=== PATIENT | female | born 1940 | race Caucasian/White ===

== ENCOUNTER → 2016-08-09 | Day surgery (SDC) | payer MEDICARE ==
[~2016-08-09] MED LIST: ALBU1AER INH; B-COTAB41 PO; BACITRACIN IM FOR SOLN 50,000 UNIT VIAL ONE; BENA25TA8 PO; BUPIVACAINE HCL PF 0.75% 30 ML VIAL ONE; BUPIVACAINE/EPINEPHRINE 0.25% 50 ML VIAL ONE; CLINDAMYCIN PHOS 600 MG/4 ML VIAL ONE; LACTATED RINGER'S 1000 ML INJ 1,000 ML ONE; LEVO75TA3 PO; LIDOCAINE 1.5%/EPINEPHrine 1:200,000 PF SOLN 30 ML AMP ONE; MIDAZOLAM HCL 5 MG/ML VIAL (1 ML) ONE; MONT10 PO; PROPOFOL 200 MG/20 ML AMP IV ONE; SODIUM CHLORIDE 0.9% 20 ML VIAL ONE; SODIUM CHLORIDE 0.9% INJ 10 ML ONE; SODIUM CHLORIDE 0.9% SOLN 100 ML (PAB) BAG IV ONE; SPIRCAP INH; VITA500015 PO; VITA500S3 SL; [UNRECOGNIZED DRUG - CODE] EX; ceFAZolin INJ 1,000 MG VIAL ONE
--- NOTE | 2016-08-09 12:42 | TN ---
cc: AKBAR YOUSIF M.D. DATE OF SURGERY 08/09/2016 PREOPERATIVE DIAGNOSIS 1. Right shoulder rotator cuff tear. 2. 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 POSTOPERATIVE DIAGNOSIS 1. Right shoulder large retracted two tendon rotator cuff tear. 2. Right shoulder acromioclavicular joint degenerative arthritis with subclavicular impingement. PROCEDURE PERFORMED 1. Open right shoulder rotator cuff repair including acromioplasty. 2. Right shoulder open partial distal clavicle excision and (10 mm). SURGEON Akbar Yousif MD ANESTHESIA General via laryngeal mask augmented by interscalene block and local infiltration BLOOD LOSS Minimal FLUIDS REPLACEMENT 600 cc of crystalloid SPECIMEN No specimens were sent. COUNTS All counts were correct. COMPLICATIONS There were no intraoperative complications. IMPLANTS UTILIZED Two Arthrex 5.5 mm Bio-Corkscrews and two Arthrex 4.5 mm Bio-PushLocks. Please note that each of the Bio-Corkscrews had four #2 FiberWire sutures on them. COMPLICATIONS There were no intraoperative complications. COUNTS All counts were correct. INDICATIONS FOR PROCEDURE Mrs. 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 She has had progressive worsening of her active and passive range of motion and as a result of her weakness and pain, she is being taken to the operating room for rotator cuff repair. She was aware of the risks, benefits, potential complications and limitations of the procedure including a significant postop recovery program and she had been cleared by Dr. Hogan from the medical standpoint. DESCRIPTION OF PROCEDURE After the patient verbally identified in the holding area, she correctly marked her right shoulder, I had initialed it as well. She then was given an interscalene block by Dr. Lara under ultrasound guidance in the preoperative holding area. At this time, she was given one gram of intravenous Ancef as prophylactic antibiotic and then she was taken to the operating suite where she was placed under general laryngeal mask anesthetic by Dr. Lara. She was then placed in the beach-chair position well-padded and appropriately positioned and then her right shoulder and arm was prepped with alcohol and Hibiclens and she was draped in the normal standard fashion including the use of impervious stockinette from the hand all the way up to the mid humerus region. At this time, a brief time-out was held confirming the right shoulder was the appropriate surgical site. The team was in agreement and the surgery was now begun. At this time, a 5-cm incision was made directly over the anterolateral aspect of the shoulder centering over the acromioclavicular joint. The subcutaneous tissue was divided and hemostasis was achieved with electrocautery. The AC joint was palpable. I went ahead and subperiosteally dissected it both medially and laterally and was able to notice that there were large osteophytes both cephalad and there was essentially no joint space that remainder between the clavicle and the acromion. I went ahead and further dissected laterally to expose the anterolateral edge of the acromion and released the deltoid in line with its fibers for approximately 1 cm. As soon as I got through the deep deltoid fascia, a archer of joint fluid came through indicative of a full-thickness rotator cuff tear. At this time once I dissected the acromion further, I went ahead and used an oscillating saw to perform an acromioplasty. She had a very large hooked acromion which was excised without difficulty and then due to the bone on bone arthritis and the large osteophytes both cephalad anterior and inferior to the AC joint, I went ahead and resect the distal 1 cm of clavicle. Care was taken to avoid destabilization of the posterior acromioclavicular ligament and certainly would not release the coracoclavicular ligaments. The subacromial space was now much better decompressed. There was a large amount of bursal tissue that was excised and a very large rotator cuff tear was very evident. There is a complete tear of the supraspinatus off of the greater tuberosity that extended anteriorly into the upper portion of the subscapularis and posteriorly into the back half of the rotator cuff. The apex of the tear actually was quite far almost all the way over to the level of the glenoid. I went ahead and irrigated out the shoulder joint at this time because it was so well exposed. There was mild glenohumeral degenerative arthritis but no bone on bone arthritis was appreciated in any portion of the joint. The labrum showed some fraying, but no significant tear was seen. There was no evidence of any rupture of the biceps tendon. It was relatively flattened, but was not inflamed and it stayed within the joint and down into the bicipital groove. It was not destabilized by the involvement of the upper half the subscapularis. At this time, I went ahead and took a rongeur to the footprint of the greater tuberosity and went ahead and excised a small amount of cortical bone in order to expose cancellous bone directly into where the anchors were going to be placed as the medial trough. Once this was completed, I went ahead and used a punch and then a tap to improve pull out strength and two 5.5 mm Bio-Corkscrew anchors were placed directly at the level of the trough. Both of them had excellent fixation and a squeaking sensation was appreciated during placement. Each one of these anchors have four #2 FiberWire sutures. They were utilized for the cuff repair. I went ahead and freshened the edge of the rotator cuff tear with a 15 blade being certain that there was good new vascular tissue and I excised some of chronic appearing scar that was present. I went ahead and sequentially passed the #2 FiberWire sutures through the leading edge of the rotator cuff tear. I was able to get good purchase. I actually used a piece of the FiberWire suture also to do a converging stitch near the apex of the tear in order to direct the tear better towards the tuberosities. There was some slight scar appreciated with this but it was not significant and it clearly was fixable. Once all the sutures were placed in the medial row of the cuff repair, I went ahead and sequentially tensioned them with the arm slightly forward elevated and internally rotated and was able to get as very close to an anatomic repair of the rotator cuff. Once this was done, I felt that there was some concern for some puckering at the level of the repair and in order to further smooth and I felt the lateral row was appropriate. The shoulder was taken through a range of motion in the humeral head and the rotator cuff moved quite well together and it was very close to a watertight repair at this time. I went ahead and did a kacw-no-mavg repair further to reinforce the apex and then went about longterm from the apex and made a decision at this time to go ahead and perform a lateral row as well to produce a modified speed bridge. Two 4.5 mm Bio- PushLocks were then utilized to take the tails of the medial row and lay them down in a lateral row in order to further reinforce the footprint of the rotator cuff. At this time, I was quite satisfied with the overall appearance of the repair. It was very smooth and well decompressed without any evidence of contact on the acromion or the clavicle. The right shoulder was then irrigated once again with antibiotic-containing saline and the deltoid was reapproximated with #2 Tycron sutures getting a good solid deltoid repair. The subcutaneous tissues were irrigated and closed with 2-0 Vicryl subcutaneous inverted stitches and the skin was then closed with marla. 20 cc of quarter percent Marcaine with epinephrine were then infiltrated subcutaneously, as well as in the subacromial space for further postop pain relief. The wound was dressed with Xeroform, 4x4s, ABD's and foam tape and she was placed into a regular sling. She has been given appropriate postoperative instructions. Her questions have been answered. Akbar Yousif MD Electronically signed MD ANNA Huntley/LEX /11:51 AM /12:24 PM MTDD
== END | disposition home or self-care (01) ==
LOC: ESDC 08:16
PROVIDERS: ATTEND Orthopaedic Surgery Sports Medicine
DX: M75.121 Complete rotator cuff tear or rupture of right shoulder, not specified as traumatic (principal); M19.011 Primary osteoarthritis, right shoulder; M75.41 Impingement syndrome of right shoulder
CPT/HCPCS: 00450; 01630; 01991; 23120; 23420; 64417; C1713; J2250; J7120; J0690